=== PATIENT | female | born 1985 | race Caucasian/White ===

== ENCOUNTER 2018-12-24 07:00 | Inpatient (IN) | payer OTHER ==
[2018-12-24] MEDS ORDERED: BUTORPHANOL 1 MG INJ IV (10:30)
[2018-12-24] MEDS ORDERED: METHYLERGONOVINE 0.2 MG INJ IM ×2 (10:30→23:00)
[2018-12-24] MEDS ORDERED: OXYTOCIN 30 UNITS/LR 500 ML IV ×4 (10:30→23:00)
[2018-12-24] MEDS ORDERED: BUTORPHANOL 2 MG INJ IV (10:30)
[2018-12-24] MEDS ORDERED: LIDOCAINE 1% (MPF) 30 ML INJ INJ (10:30)
[2018-12-24] MEDS ORDERED: CARBOPROST 250 MCG INJ IM ×2 (10:30→23:00)
[2018-12-24 11:04] LABS: ADD MAN DIFF? NO
[2018-12-24 11:09] LABS: BASOPHILS % 0.3 % (0.0-2.0); EOSINOPHILS # 0.1 10^3/ul (0.0-0.5); EOSINOPHILS % 0.8 % (0.0-7.0); HEMATOCRIT 33.4 % (37.0-47.0); HEMOGLOBIN 10.9 g/dl (12.0-16.0); LYMPHOCYTES # 1.6 10^3/ul (0.8-2.9); MEAN CORPUSCULAR HGB CONC 32.6 g/dl (32.0-37.0); MEAN CORPUSCULAR VOLUME 82.9 fl (82.0-101.0); MEAN PLATELET VOLUME 10.1 fl (7.4-10.4); MONOCYTE # 0.7 10^3/ul (0.3-0.9); MONOCYTES % 6.9 % (0.0-11.0); NEUTROPHIL # 8.2 10^3/ul (1.6-7.5); NEUTROPHILS % 76.5 % (39.0-77.0); PLATELET COUNT 314 10^3/UL (140-415); RED BLOOD COUNT 4.03 10^6/ul (4.20-5.40); RED CELL DISTRIBUTION WIDTH 15.2 % (11.5-14.5)
[2018-12-24 11:09] LABS: WHITE BLOOD COUNT 10.7 10^3/ul (4.8-10.8)
[2018-12-24 11:28] LABS: INR 0.88; PARTIAL THROMBOPLASTIN TIME 27.6 Sec (23.0-35.0); PT RATIO 0.9
[2018-12-24 13:15] LABS: ADD MAN DIFF? NO
[2018-12-24 13:18] LABS: BASOPHILS % 0.3 % (0.0-2.0); EOSINOPHILS # 0.1 10^3/ul (0.0-0.5); EOSINOPHILS % 0.8 % (0.0-7.0); HEMATOCRIT 34.2 % (37.0-47.0); HEMOGLOBIN 11.2 g/dl (12.0-16.0); LYMPHOCYTES # 1.9 10^3/ul (0.8-2.9); LYMPHOCYTES % 15.6 % (15.0-51.0); MEAN CORPUSCULAR HEMOGLOBIN 27.7 pg (29.0-33.0); MEAN CORPUSCULAR HGB CONC 32.7 g/dl (32.0-37.0); MEAN CORPUSCULAR VOLUME 84.7 fl (82.0-101.0); MEAN PLATELET VOLUME 11.1 fl (7.4-10.4); MONOCYTE # 0.9 10^3/ul (0.3-0.9); MONOCYTES % 7.6 % (0.0-11.0); NEUTROPHILS % 75.1 % (39.0-77.0); PLATELET COUNT 356 10^3/UL (140-415); RED BLOOD COUNT 4.04 10^6/ul (4.20-5.40); RED CELL DISTRIBUTION WIDTH 15.2 % (11.5-14.5)
[2018-12-24 13:37] LABS: PROTIME 11.2 Sec (11.9-14.9); PT RATIO 0.9
[2018-12-24 13:38] LABS: PARTIAL THROMBOPLASTIN TIME 28.6 Sec (23.0-35.0)
[2018-12-24] MEDS: LACTATED RINGER'S 1,000 ML IV ×2 (13:42→14:42)
[2018-12-24] MEDS ORDERED: FENTAnyl 2MCG/ML-ROPIV 0.2% 100 ML (14:53)
[2018-12-24] MEDS ORDERED: FENTAnyl 2MCG/ML-ROPIV 0.2% 100 ML BAG EPI (15:00)
[2018-12-24] MEDS ORDERED: NALOXONE (0.4 MG/ML) INJ IV (15:00)
[2018-12-24] MEDS ORDERED: DIPHENHYDRAMINE 50 MG INJ IV ×2 (15:00→23:00)
[2018-12-24] MEDS ORDERED: ONDANSETRON 4 MG INJ IV ×2 (15:00→23:00)
[2018-12-24 15:56] LABS: AMPHETAMINE/METHAMPHETAMINE Negative (NEGATIVE); BARBITURATES Negative (NEGATIVE); BENZODIAZEPINES Negative (NEGATIVE); CANNABINOIDS Negative (NEGATIVE); COCAINE Negative (NEGATIVE); OPIATES Negative (NEGATIVE)
[2018-12-24 16:43] LABS: RAPID PLASMA REAGIN NONREACTIVE (NR)
[2018-12-24] MEDS: OXYTOCIN 30 UNITS/LR 500 ML IV (17:00)
[2018-12-24] MEDS: MINERAL OIL LIGHT 10 ML VIAL TOP (19:30)
[2018-12-24] MEDS: MISOPROSTOL 200 MCG TAB PR (20:57)
[2018-12-24 22:00] LABS: HEPATITIS B SURFACE ANTIGEN NEGATIVE (NEGATIVE)
[2018-12-24] MEDS: LACTATED RINGER'S 1,000 ML IV* (22:48)
[2018-12-24] MEDS: DEXTROSE 5%-LR 1,000 ML IV (22:48)
[2018-12-24] MEDS ORDERED: DIBUCAINE 1% 30 GM OINT TOP (23:00)
[2018-12-24] MEDS ORDERED: ACETAMINOPHEN 325 MG TAB PO (23:00)
[2018-12-24] MEDS ORDERED: MISOPROSTOL 200 MCG TAB PR (23:00)
[2018-12-24] MEDS ORDERED: ZOLPIDEM 5 MG TAB PO (23:00)
[2018-12-24] MEDS: IBUPROFEN 600 MG TAB PO (23:40)
[2018-12-25] MEDS: IBUPROFEN 600 MG TAB PO ×4 (05:20→23:37)
[2018-12-25 06:47] LABS: BASOPHILS % 0.3 % (0.0-2.0); EOSINOPHILS # 0.1 10^3/ul (0.0-0.5); EOSINOPHILS % 0.6 % (0.0-7.0); HEMATOCRIT 32.6 % (37.0-47.0); HEMOGLOBIN 10.6 g/dl (12.0-16.0); LYMPHOCYTES % 14.3 % (15.0-51.0); MEAN CORPUSCULAR HEMOGLOBIN 27.2 pg (29.0-33.0); MEAN CORPUSCULAR HGB CONC 32.5 g/dl (32.0-37.0); MEAN CORPUSCULAR VOLUME 83.8 fl (82.0-101.0); MEAN PLATELET VOLUME 10.7 fl (7.4-10.4); MONOCYTE # 1.5 10^3/ul (0.3-0.9); MONOCYTES % 10.6 % (0.0-11.0); NEUTROPHIL # 10.1 10^3/ul (1.6-7.5); NEUTROPHILS % 73.7 % (39.0-77.0); PLATELET COUNT 281 10^3/UL (140-415); RED BLOOD COUNT 3.89 10^6/ul (4.20-5.40); RED CELL DISTRIBUTION WIDTH 15.1 % (11.5-14.5)
[2018-12-25 06:47] LABS: WHITE BLOOD COUNT 13.7 10^3/ul (4.8-10.8)
[2018-12-25 06:48] LABS: ADD MAN DIFF? NO
[2018-12-25] MEDS: LACTATED RINGER'S 1,000 ML IV* ×2 (06:48→14:48)
[2018-12-25] MEDS: DEXTROSE 5%-LR 1,000 ML IV ×2 (06:48→14:48)
[2018-12-25] MEDS: MEASLES,MUMPS,RUBELLA VACCINE INJ SC* (10:11)
[2018-12-25] MEDS: WITCH HAZEL/GLYCERIN PAD PR (20:27)
[2018-12-25] MEDS: LANOLIN HPA 1 PKT TOP (20:28)
[2018-12-25] MEDS: SENNA/DOCUSATE NA (8.6MG/50MG) TAB PO (20:28)
[2018-12-25] MEDS: BENZOCAINE 20% 56 ML SPRAY TOP (20:28)
[2018-12-25] MEDS: OXYCODONE/ASPIRIN (4.88/325) TAB PO (20:29)
[2018-12-26] MEDS: IBUPROFEN 600 MG TAB PO ×2 (05:41→12:20)
[2018-12-26] MEDS: DIPHTH/TET/ACEL PERTUSS (ADULT) 0.5 ML VIAL IM* (09:35)
== END 2018-12-26 16:21 | disposition home or self-care (01) | DRG 807 ==
LOC: OBT 07:00 → L-D 07:05 → OBT 10:00 → L-D 10:08 → PP1 21:55
PROVIDERS: Obstetrics & Gynecology
PROC: 10D07Z6 Extraction of Products of Conception, Vacuum, Via Natural or Artificial Opening (ICD-10-PCS; principal; 2018-12-24)
PROC: 0UQGXZZ Repair Vagina, External Approach (ICD-10-PCS; 2018-12-24)
DX: O71.4 Obstetric high vaginal laceration alone (principal); Z37.0 Single live birth; Z3A.39 39 weeks gestation of pregnancy
CPT/HCPCS: 62319; 76818; 80307; 85025; 85610; 85730; 86592; 86850; 86900; 86901; 87340; 90686; 99464